=== PATIENT | female | born 1945 | race Caucasian/White ===

== ENCOUNTER 2016-09-15 11:09 | Emergency (ER) | payer OTHER ==
[~2016-09-15] VITALS: Ht 172.7 cm; Wt 111.2 kg
[~2016-09-15 11:09] MED LIST: ADVAIR 100-501 EACH IH; ADVAIR 250/501 DISK IH; ALBUTEROL1 GM MC; ANUSOL1 EACH RC; ATIVAN0.5 MG PO; DAILY MULTIPLE1 EACH PO; DETROL LA2 MG PO; DILANTIN100 MG PO; DILANTIN30 MG PO; DILAUDID4 MG PO; DIOVAN40 MG PO; DULERA 100 MCG/13 GM IH; FLONASE16 GM NS; HYDROMORPHONE HC4 MG PO; IBU-200200 MG PO; IRON325 M1 PO; KEFLEX500 MG PO; LASIX2 MG/1 ML IV; LEXAPRO20 MG PO; LEXAPRO5 MG PO; LIPITOR20 MG PO; LIPITOR5 MG PO; LISINOPRIL20 MG PO; MACRODANTIN50 M1 PO; NASONEX17 GM BOTH NARES; OMEPRAZOLE40 M1 PO; PHENERGAN12.5 MG PR; POTASSIUM CHLO10 MEQ PO; PRILOSEC PO; PROBIOTIC1 EAC3 PO; VICODIN 5-3001 EACH PO; XARELTO10 MG PO; ZESTRIL,PRINIV2.5 MG PO
[2016-09-15 11:50] LABS: EOSINOPHIL (%) 3.7 % (0-5); EOSINOPHIL COUNT 0.2 K/uL (0-0.3); HEMATOCRIT 39.7 % (36.0-46.0); IMMATURE GRANULOCYTE (%) 0.4 % (0.0-0.7); INSTRUMENT ABS NEUTROPHIL CT 3.1 K/uL; MCH 29.6 PG (29.0-34.0); MCHC 32.2 G/DL (30.0-36.0); MCV 91.7 FL (83-99); MEAN PLAT.VOLUME 8.5 uM^3 (9.5-12.4); MONOCYTE (%) 10.2 % (3-12); MONOCYTE COUNT 0.5 K/uL (0-0.8); NEUTROPHIL (%) 64.5 % (45-76); NEUTROPHIL COUNT 3.1 K/uL (1.8-6.4); PLATELET COUNT 200 K/uL (156-360); RBC DIS.WIDTH-CV 12.9 % (11.8-14.6); RBC DIS.WIDTH-SD 43.9 % (39-53); RED BLOOD COUNT 4.33 M/uL (3.80-5.20); WHITE BLOOD COUNT 4.8 K/uL (4.1-10.2)
[2016-09-15 12:00] LABS: CHLORIDE 107 mEq/L (99-109); POTASSIUM 4.3 mEq/L (3.7-5.4); SODIUM 142 mEq/L (136-147)
[2016-09-15 12:01] LABS: GLUCOSE 101 mg/dL (70-99)
[2016-09-15 12:03] LABS: ANION GAP 12 MEQ/L (2-14)
[2016-09-15 12:04] LABS: ADD MIUA? YES; BILIRUBIN NEGATIVE; BLOOD SMALL; COLOR STRAW ((YELLOW)); GLUCOSE (STRIP) NEGATIVE; KETONES NEGATIVE; LEUKOCYTES NEGATIVE; NITRITE NEGATIVE; PROTEIN (STRIP) NEGATIVE; SPECIFIC GRAVITY 1.004 (1.000-1.030); UROBILINOGEN 0.2 MG/DL (0.2-1.0)
[2016-09-15 12:05] LABS: GFR ESTIMATE (CALCULATED) > 59 mL/min/
[2016-09-15 12:06] LABS: BACTERIA NONE SEEN /HPF; EPITHELIAL CELLS RARE /HPF; MUCUS TRACE /LPF; RED BLOOD CELLS 0-5 /HPF (0-5); UCUL ADDED? NO; WHITE BLOOD CELLS NONE SEEN /HPF (0-5)
[2016-09-15 12:06] LABS: UREA NITROGEN (BUN) 17 mg/dL (9-23)
[2016-09-15] MEDS ORDERED: DITROPAN5 MG PO (15:11)
[2016-09-15 16:00] VITALS: BP 122/69
== END 2016-09-15 16:57 | disposition home or self-care (01) ==
LOC: EME 11:09
PROVIDERS: Emergency Medicine
DX: N30.10 Interstitial cystitis (chronic) without hematuria (principal); N32.89 Other specified disorders of bladder; J44.9 Chronic obstructive pulmonary disease, unspecified; I10 Essential (primary) hypertension; K21.9 Gastro-esophageal reflux disease without esophagitis; G89.29 Other chronic pain; M25.551 Pain in right hip; Z96.89 Presence of other specified functional implants
CPT/HCPCS: 80048; 81003; 85025; 87086; 99281; 99284; J2270

== ENCOUNTER → 2016-12-26 | Outpatient (CLI) | payer MEDICARE, OTHER ==
[~2016-12-26] MED LIST changes: +DITROPAN5 MG PO
== END | disposition home or self-care (01) ==
LOC: CDC 11:44
DX: Z01.810 Encounter for preprocedural cardiovascular examination (principal); M67.432 Ganglion, left wrist; G56.02 Carpal tunnel syndrome, left upper limb
CPT/HCPCS: 93000

== ENCOUNTER 2017-03-03 12:14 | Emergency (ER) | payer OTHER ==
[~2017-03-03] VITALS: Ht 167.6 cm; Wt 105.2 kg
[2017-03-03 18:25] VITALS: BP 129/82
== END 2017-03-03 18:47 | disposition home or self-care (01) ==
LOC: EME 12:14
DX: S92.354A Nondisplaced fracture of fifth metatarsal bone, right foot, initial encounter for closed fracture (principal); X58.XXXA Exposure to other specified factors, initial encounter; R60.0 Localized edema; J44.9 Chronic obstructive pulmonary disease, unspecified; I10 Essential (primary) hypertension; K21.9 Gastro-esophageal reflux disease without esophagitis; R56.9 Unspecified convulsions; Z88.8 Allergy status to other drugs, medicaments and biological substances
CPT/HCPCS: 73590; 73630; 93971; 99281; 99283

== ENCOUNTER 2017-05-02 15:33 | Inpatient (IN) | payer OTHER ==
[~2017-05-02] VITALS: Ht 167.6 cm; Wt 97.6 kg
[2017-05-02 18:07] LABS: HEMATOCRIT 37.8 % (36.0-46.0); HEMOGLOBIN 12.8 G/DL (11.9-15.5); MCH 31.2 PG (29.0-34.0); MCHC 33.9 G/DL (30.0-36.0); MCV 92.2 FL (83-99); PLATELET COUNT 184 K/uL (156-360); RBC DIS.WIDTH-CV 13.7 % (11.8-14.6); WHITE BLOOD COUNT 7.3 K/uL (4.1-10.2)
[2017-05-02 18:16] LABS: ALBUMIN 3.8 g/dL (3.2-4.8)
[2017-05-02 18:17] LABS: CHLORIDE 108 mEq/L (99-109); POTASSIUM 3.9 mEq/L (3.7-5.4); SODIUM 141 mEq/L (136-147)
[2017-05-02 18:19] LABS: GLUCOSE 99 mg/dL (70-99); TOTAL PROTEIN 6.8 g/dL (6.4-8.3)
[2017-05-02 18:20] LABS: PTT 27.4 SEC (25-37)
[2017-05-02 18:21] LABS: TOTAL BILIRUBIN 0.2 mg/dL (0.0-1.0)
[2017-05-02 18:22] LABS: ALKALINE PHOSPHATASE 166 IU/L (3-129)
[2017-05-02 18:23] LABS: CREATININE 0.8 mg/dL (0.6-1.3); GFR ESTIMATE (CALCULATED) > 59 mL/min/
[2017-05-02 18:24] LABS: AST (GOT) 25 IU/L (2-34); UREA NITROGEN (BUN) 25 mg/dL (9-23)
[2017-05-02 18:25] LABS: ALT (GPT) 26 IU/L (3-49)
[2017-05-02 18:26] LABS: LIPASE 21 U/L (1.0-51.0)
[2017-05-02 18:29] LABS: TROP-I INTERPRETATION NEGATIVE; TROPONIN-I < 0.01 ng/mL (0.0-0.30)
[2017-05-02 19:22] LABS: THYROTROPIN (TSH) 1.4 MIU/L (0.4-5.5)
[2017-05-02] MEDS ORDERED: [UNRECOGNIZED DRUG - OTHER] PO (22:57)
[2017-05-02] MEDS ORDERED: [UNRECOGNIZED DRUG - OTHER] (22:57)
[2017-05-02] MEDS ORDERED: CELEBREX200 MG PO (22:58)
[2017-05-02] MEDS ORDERED: TRIMETHOPRIM100 MG PO (22:58)
[2017-05-02] MEDS ORDERED: SINGULAIR10 MG PO (22:58)
[2017-05-03] VITALS (7 sets, daily range): BP systolic 125–163; BP diastolic 60–87
[2017-05-03 06:00] LABS: HEMATOCRIT 37.8 % (36.0-46.0); HEMOGLOBIN 12.5 G/DL (11.9-15.5); MCH 30.8 PG (29.0-34.0); MCHC 33.1 G/DL (30.0-36.0); MCV 93.1 FL (83-99); PLATELET COUNT 177 K/uL (156-360); RBC DIS.WIDTH-CV 14.1 % (11.8-14.6); RBC DIS.WIDTH-SD 48.3 % (39-53); RED BLOOD COUNT 4.06 M/uL (3.80-5.20)
[2017-05-03 06:15] LABS: TROP-I INTERPRETATION NEGATIVE; TROPONIN-I < 0.01 ng/mL (0.0-0.30)
[2017-05-03 06:29] LABS: CHLORIDE 110 MEQ/L (99-109); CREATININE 0.6 MG/DL (0.6-1.3); GFR ESTIMATE (CALCULATED) > 59 mL/min/; GLUCOSE 107 mg/dL (70-99); SODIUM 144 MEQ/L (136-147); UREA NITROGEN (BUN) 19 mg/dL (9-23)
[2017-05-04 03:32] VITALS: BP 127/75
[2017-05-04 07:19] VITALS: BP 139/83
[2017-05-04 08:59] LABS: APPEARANCE CLOUDY ((CLEAR)); BILIRUBIN NEGATIVE; BLOOD MODERATE; COLOR AMBER ((YELLOW)); GLUCOSE (STRIP) NEGATIVE; KETONES 5; LEUKOCYTES MODERATE; NITRITE POSITIVE; PROTEIN (STRIP) NEGATIVE; SPECIFIC GRAVITY 1.014 (1.000-1.030); UROBILINOGEN 0.2 MG/DL (0.2-1.0)
[2017-05-04 09:50] LABS: BACTERIA 3+ /HPF; WHITE BLOOD CELLS TNTC /HPF (0-5)
[2017-05-04 11:39] VITALS: BP 140/78
[2017-05-04 16:22] VITALS: BP 151/78
[2017-05-04 20:00] VITALS: BP 134/72
[2017-05-05 00:07] VITALS: BP 128/70
[2017-05-05 03:41] VITALS: BP 134/75
[2017-05-05] MEDS ORDERED: MECLIZINE HCL25 MG PO (10:10)
[2017-05-05] MEDS ORDERED: KEFLEX250 MG PO (10:10)
[2017-05-05 10:42] VITALS: BP 118/73
== END 2017-05-05 11:42 | disposition home or self-care (01) | DRG 312 ==
LOC: EME 15:33 → 5WEST 22:46 → EDOF 22:46 → ENRESERV 22:51 → EDOF 23:31 → 5WEST 23:31 → ENRESERV 23:35 → 5WEST 05-03 01:12
PROVIDERS: Emergency Medicine; Hospitalist
DX: R55 Syncope and collapse (principal); R42 Dizziness and giddiness; R53.1 Weakness; I10 Essential (primary) hypertension; E78.5 Hyperlipidemia, unspecified; T42.0X5A Adverse effect of hydantoin derivatives, initial encounter; G40.909 Epilepsy, unspecified, not intractable, without status epilepticus; M54.5 Low back pain; K21.9 Gastro-esophageal reflux disease without esophagitis; N39.0 Urinary tract infection, site not specified; N30.10 Interstitial cystitis (chronic) without hematuria; Z66 Do not resuscitate; Z88.5 Allergy status to narcotic agent; Z79.899 Other long term (current) drug therapy; Z87.891 Personal history of nicotine dependence; Z90.49 Acquired absence of other specified parts of digestive tract; Z88.8 Allergy status to other drugs, medicaments and biological substances; R29.6 Repeated falls; M54.16 Radiculopathy, lumbar region
CPT/HCPCS: 70450; 71045; 72131; 80048; 80053; 80185; 81003; 83690; 84443; 84484; 85027; 85610; 85730; 93005; 93880; 99281; 99285; G0378; J0696; J1170; J1644; J7030